=== PATIENT | female | born 1965 | race Caucasian/White ===

== ENCOUNTER 2022-03-31 12:55 | Outpatient (RCR) | payer OTHER, SELFPAY | END 2022-04-29 23:59 | LOC: NS 12:55 | PROVIDERS: PCP Nurse Practitioner Family; Referring Provider Internal Medicine; Visit Provider Internal Medicine | DX: Z71.3 Dietary counseling and surveillance (principal); E66.3 Overweight; R73.03 Prediabetes | CPT/HCPCS: 97802 ==